=== PATIENT | female | born 1990 | race Caucasian/White ===

== ENCOUNTER 2016-05-04 13:24 | Emergency (ER) | payer OTHER ==
[~2016-05-04] VITALS: Ht 162.6 cm; Wt 60.9 kg
[2016-05-04 13:26] VITALS: BP 117/70; PULSE 86; RESP 16; TEMP 98.2; O2SAT 97
[2016-05-04 14:46] VITALS: BP 114/70; PULSE 78; RESP 22; TEMP 97.8; O2SAT 99
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
[2016-05-04] MEDS ORDERED: KETOROLAC TROMETHAMINE 60 MG/2 ML (IM) VIAL IM ONE (15:15)
[2016-05-04 15:35] VITALS: BP 113/64
== END 2016-05-04 15:53 | disposition home or self-care (01) ==
LOC: NEPC 13:24
DX: R60.0 Localized edema (principal); M79.604 Pain in right leg
CPT/HCPCS: 96372; 99283; J1885

== ENCOUNTER → 2017-07-09 | Outpatient (CLI) | payer OTHER ==
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
== END ==
LOC: HRAD 14:23
PROVIDERS: ATTEND Psychiatry & Neurology Neurology
DX: M25.521 Pain in right elbow (principal); M25.572 Pain in left ankle and joints of left foot
CPT/HCPCS: 73080; 73610